=== PATIENT | female | born 1985 | race Caucasian/White ===

== ENCOUNTER 2018-08-18 01:26 | Inpatient (IN) | payer SELFPAY ==
[~2018-08-18] VITALS: Ht 165.1 cm; Wt 67.4 kg
[2018-08-18] VITALS (450 sets, daily range): BP systolic 102–138; BP diastolic 66–88; PULSE 90–109; TEMP 97.3–98.5; O2SAT 80–100
[2018-08-18 01:55] LABS: COLLECTION METHOD CLEAN CATCH
[2018-08-18 02:04] LABS: PH 6 (5-8); URINE APPEARANCE Hazy; URINE BACTERIA None Seen /hpf; URINE BILIRUBIN Negative (NEGATIVE); URINE BLOOD 1+ (NEGATIVE); URINE COLOR Straw; URINE GLUCOSE 3+ (NEGATIVE); URINE KETONE 1+ (NEGATIVE); URINE LEUKOCYTE ESTERASE Trace (NEGATIVE); URINE NITRATE Negative (NEGATIVE); URINE PROTEIN(semi-quant) Negative (NEGATIVE); URINE UROBILINOGEN Negative (NEGATIVE)
[2018-08-18 02:30] LABS: BASO % 0.7 % (0.0-2.0); EOS # 0.1 (0.0-0.7); EOS % 0.8 % (0-4.0); GRAN # 3.7 (1.4-6.5); GRAN % 60.9 % (42.2-75.2); LYMPH # 1.7 (1.2-3.4); LYMPH % 27.6 % (20.0-51.0); MEAN CELL VOLUME 92 fl (80.0-100.0); MEAN CORPUSCULAR HEMOGLOBIN 29 pg (27.0-31.0); MEAN CORPUSCULAR HGB CONC 31 g/dl (33.0-37.0); MEAN PLATELET VOLUME 9.3 fl (7.4-10.4); MONO # 0.6 (0.1-0.6); MONO % 9.7 % (1.7-9.3); PLATELET COUNT 344 K/mm3 (130-400); RED BLOOD COUNT 3.81 M/mm3 (4.10-5.30); REDCELL DISTRIBUTION WIDTH-CV 12.3 % (11.5-14.5)
[2018-08-18 02:40] LABS: ALANINE AMINOTRANSFERASE 29 U/L (9-52); ALBUMIN 3.3 gm/dL (3.5-5.0); ALKALINE PHOSPHATASE 112 U/L (50-136); ANION GAP 10 mmol/L (7-16); AST,SGOT 24 U/L (15-37); BILIRUBIN,TOTAL 0.6 mg/dL (0.0-1.0); BLOOD UREA NITROGEN 30 mg/dL (7-17); CARBON DIOXIDE 24 mmol/L (22-30); CHLORIDE 101 mmol/L (98-107); CREATININE, serum 0.88 mg/dL (0.52-1.25); POTASSIUM 4.2 mmol/L (3.4-5.0); SODIUM 135 mmol/L (137-145); TOTAL PROTEIN 6.1 gm/dL (6.4-8.2)
[2018-08-18 03:05] LABS: GLUCOSE 865 mg/dL (74-106)
[2018-08-18 03:20] LABS: ACETONE,SERUM SMALL
[2018-08-18] MEDS ORDERED: NOVOLIN 70/30 710 ML SQ (04:13)
[2018-08-18 04:29] LABS: TRICYCLIC ANTIDEPRESS URINE NEGATIVE
[2018-08-18 05:55] LABS: CALCIUM 7.8 mg/dL (8.4-10.2); CREATININE, serum 0.77 mg/dL (0.52-1.25); POTASSIUM 4.3 mmol/L (3.4-5.0)
[2018-08-18 07:13] LABS: MAGNESIUM 1.7 mg/dL (1.6-2.3); PHOSPHOROUS 3.3 mg/dL (2.5-4.5)
[2018-08-18 07:54] LABS: CALCIUM 8.1 mg/dL (8.4-10.2); CREATININE, serum 0.73 mg/dL (0.52-1.25); POTASSIUM 4.8 mmol/L (3.4-5.0)
[2018-08-18 08:51] LABS: CALCIUM 8.3 mg/dL (8.4-10.2); CREATININE, serum 0.69 mg/dL (0.52-1.25); POTASSIUM 4.9 mmol/L (3.4-5.0)
[2018-08-18 11:29] LABS: CALCIUM 8.2 mg/dL (8.4-10.2); CREATININE, serum 0.67 mg/dL (0.52-1.25); POTASSIUM 4.1 mmol/L (3.4-5.0)
[2018-08-18 13:55] LABS: COLLECTION METHOD CLEAN CATCH
[2018-08-18 14:02] LABS: MUCOUS Present /lpf; PH 5 (5-8); URINE APPEARANCE Hazy; URINE BACTERIA Occasional /hpf; URINE BILIRUBIN Negative (NEGATIVE); URINE BLOOD 2+ (NEGATIVE); URINE COLOR Straw; URINE GLUCOSE Negative (NEGATIVE); URINE KETONE Negative (NEGATIVE); URINE LEUKOCYTE ESTERASE 1+ (NEGATIVE); URINE NITRATE Negative (NEGATIVE); URINE PROTEIN(semi-quant) Negative (NEGATIVE); URINE UROBILINOGEN Negative (NEGATIVE)
[2018-08-18 14:10] LABS: URINE RBC >50 /hpf
[2018-08-18 15:20] LABS: CALCIUM 8.3 mg/dL (8.4-10.2); CREATININE, serum 0.61 mg/dL (0.52-1.25); POTASSIUM 4.6 mmol/L (3.4-5.0)
[2018-08-19 03:31] VITALS: BP 107/69; PULSE 85; TEMP 98.4
[2018-08-19 07:05] LABS: BASO % 0.6 % (0.0-2.0); EOS # 0.2 (0.0-0.7); EOS % 2.2 % (0-4.0); GRAN # 3.5 (1.4-6.5); GRAN % 49.6 % (42.2-75.2); HEMOGLOBIN 11.5 g/dl (12.5-16.0); LYMPH # 2.9 (1.2-3.4); LYMPH % 41.5 % (20.0-51.0); MEAN CELL VOLUME 88 fl (80.0-100.0); MEAN CORPUSCULAR HEMOGLOBIN 29 pg (27.0-31.0); MEAN CORPUSCULAR HGB CONC 32 g/dl (33.0-37.0); MEAN PLATELET VOLUME 8.9 fl (7.4-10.4); MONO # 0.4 (0.1-0.6); PLATELET COUNT 345 K/mm3 (130-400); RED BLOOD COUNT 4.04 M/mm3 (4.10-5.30); REDCELL DISTRIBUTION WIDTH-CV 12.4 % (11.5-14.5)
[2018-08-19 07:06] LABS: HEMATOCRIT 35.7 % (37.0-47.0)
[2018-08-19 07:20] LABS: CALCIUM 8.7 mg/dL (8.4-10.2); CREATININE, serum 0.81 mg/dL (0.52-1.25); POTASSIUM 3.9 mmol/L (3.4-5.0)
[2018-08-19 07:33] VITALS: BP 136/91; PULSE 99; TEMP 99.1
[2018-08-19 11:00] VITALS: BP 125/80; PULSE 98; TEMP 98.3
[2018-08-19] MEDS ORDERED: HUMULIN 70/30 PE3 ML SQ (11:57)
== END 2018-08-19 13:28 | disposition home or self-care (01) | DRG 639 ==
LOC: COL.ER 01:26 → ICU 03:33 → MEDICAL 19:34
PROVIDERS: Emergency Medicine; Hospitalist; Internal Medicine; Nurse Practitioner Family
DX: E10.65 Type 1 diabetes mellitus with hyperglycemia (principal); Z79.4 Long term (current) use of insulin; E10.42 Type 1 diabetes mellitus with diabetic polyneuropathy; D64.9 Anemia, unspecified; R31.9 Hematuria, unspecified
CPT/HCPCS: 99222-AI; 99239; J1815; J2405; J3010; J3480; J7030

== ENCOUNTER → 2018-12-28 | Outpatient (CLI) | payer SELFPAY ==
[~2018-12-28] MED LIST: HUMULIN 70/30 PE3 ML SQ; NOVOLIN 70/30 710 ML SQ
[2018-12-28 19:01] LABS: ALANINE AMINOTRANSFERASE < 6 U/L (9-52); ALKALINE PHOSPHATASE 135 U/L (50-136); ANION GAP 9 mmol/L (7-16); AST,SGOT 34 U/L (15-37); BILIRUBIN,TOTAL 0.5 mg/dL (0.0-1.0); BLOOD UREA NITROGEN 18 mg/dL (7-17); CALCIUM 9.7 mg/dL (8.4-10.2); CARBON DIOXIDE 28 mmol/L (22-30); CHLORIDE 102 mmol/L (98-107); CHOLESTEROL 282 mg/dL (120-200); CHOLESTEROL RISK RATIO 3.9; CREATININE, serum 0.74 (0.52-1.25); GLUCOSE 231 mg/dL (74-106); HDL CHOLESTEROL 71 mg/dL; LDL CHOLESTEROL 177 mg/dL; POTASSIUM 5.3 mmol/L (3.4-5.0); SODIUM 138 mmol/L (137-145); TRIGLYCERIDE 170 mg/dL
[2018-12-29 15:51] LABS: URINE MICROALBUMIN 18.7 mg/dL (0.0-1.7)
== END ==
LOC: ZCOL.LAB 16:23
PROVIDERS: Family Medicine
DX: E10.9 Type 1 diabetes mellitus without complications (principal)

== ENCOUNTER → 2019-01-08 | Outpatient (CLI) | payer SELFPAY | LOC: ZCOL.LAB 16:36 | DX: E10.9 Type 1 diabetes mellitus without complications (principal); E87.5 Hyperkalemia ==

== ENCOUNTER 2019-01-21 18:38 | Emergency (ER) | payer SELFPAY ==
[~2019-01-21] VITALS: Ht 165.1 cm; Wt 63.6 kg
[2019-01-21 18:48] VITALS: TEMP 96.3
[2019-01-21 19:15] LABS: BASO # 0.1 (0.0-0.2); BASO % 0.7 % (0.0-2.0); EOS # 0.1 (0.0-0.7); EOS % 0.9 % (0-4.0); GRAN # 5.6 (1.4-6.5); GRAN % 72.7 % (42.2-75.2); HEMATOCRIT 38.3 % (37.0-47.0); HEMOGLOBIN 12.5 g/dl (12.5-16.0); LYMPH # 1.5 (1.2-3.4); LYMPH % 20.2 % (20.0-51.0); MEAN CELL VOLUME 86 fl (80.0-100.0); MEAN CORPUSCULAR HEMOGLOBIN 28 pg (27.0-31.0); MEAN CORPUSCULAR HGB CONC 33 g/dl (33.0-37.0); MEAN PLATELET VOLUME 8.9 fl (7.4-10.4); MONO # 0.4 (0.1-0.6); MONO % 5.4 % (1.7-9.3); PLATELET COUNT 412 K/mm3 (130-400); RED BLOOD COUNT 4.47 M/mm3 (4.10-5.30); REDCELL DISTRIBUTION WIDTH-CV 13.2 % (11.5-14.5)
[2019-01-21 19:24] LABS: ALBUMIN 3.5 gm/dL (3.5-5.0); CALCIUM 9.3 mg/dL (8.4-10.2); CREATININE, serum 0.75 (0.52-1.25); POTASSIUM 3.2 mmol/L (3.4-5.0); TOTAL PROTEIN 6.8 gm/dL (6.4-8.2)
[2019-01-21 23:59] VITALS: BP 116/76; PULSE 100
== END 2019-01-22 | disposition home or self-care (01) ==
LOC: COL.ER 18:38
PROVIDERS: Nurse Practitioner
DX: E16.2 Hypoglycemia, unspecified (principal); E11.9 Type 2 diabetes mellitus without complications; Z79.4 Long term (current) use of insulin
CPT/HCPCS: J7030

== ENCOUNTER → 2019-02-12 | Outpatient (CLI) | payer SELFPAY ==
[2019-02-12 17:44] LABS: BILIRUBIN,TOTAL 1.2 mg/dL (0.0-1.0); CALCIUM 9.6 mg/dL (8.4-10.2); CREATININE, serum 1.42 (0.52-1.25); POTASSIUM 4.3 mmol/L (3.4-5.0); TOTAL PROTEIN 7.9 gm/dL (6.4-8.2)
== END ==
LOC: COL.LAB 16:55
PROVIDERS: Family Medicine
DX: R60.9 Edema, unspecified (principal)

== ENCOUNTER 2019-02-14 12:40 | Inpatient (IN) | payer SELFPAY ==
[~2019-02-14] VITALS: Ht 165.1 cm; Wt 63.5 kg
[2019-02-14 13:34] LABS: GASTROCCULT POSITIVE; pH GASTRIC CONTENTS 4
[2019-02-14 13:39] LABS: BASO % 0.4 % (0.0-2.0); EOS # 0.1 (0.0-0.7); EOS % 0.6 % (0-4.0); GRAN # 7.1 (1.4-6.5); GRAN % 78.1 % (42.2-75.2); LYMPH # 1.5 (1.2-3.4); LYMPH % 16.9 % (20.0-51.0); MEAN CELL VOLUME 87 fl (80.0-100.0); MEAN CORPUSCULAR HEMOGLOBIN 28 pg (27.0-31.0); MEAN CORPUSCULAR HGB CONC 33 g/dl (33.0-37.0); MEAN PLATELET VOLUME 9.2 fl (7.4-10.4); MONO # 0.3 (0.1-0.6); MONO % 3.7 % (1.7-9.3); PLATELET COUNT 430 K/mm3 (130-400); RED BLOOD COUNT 4.59 M/mm3 (4.10-5.30); REDCELL DISTRIBUTION WIDTH-CV 12.7 % (11.5-14.5)
[2019-02-14 13:57] LABS: ALBUMIN 3.9 gm/dL (3.5-5.0); BILIRUBIN,TOTAL 0.7 mg/dL (0.0-1.0); C-REACTIVE PROTEIN 1.3 mg/dL (0.0-0.9); CALCIUM 9.6 mg/dL (8.4-10.2); CREATININE, serum 0.85 (0.52-1.25); POTASSIUM 3.8 mmol/L (3.4-5.0); TOTAL PROTEIN 7.6 gm/dL (6.4-8.2)
[2019-02-14 14:54] LABS: MUCOUS Present /lpf; PH 9 (5-8); SQUAMOUS EPITHELIAL 0-2 /hpf; URINE APPEARANCE Cloudy; URINE BACTERIA None Seen /hpf; URINE BILIRUBIN Negative (NEGATIVE); URINE BLOOD 1+ (NEGATIVE); URINE COLOR Yellow; URINE GLUCOSE 2+ (NEGATIVE); URINE KETONE Negative (NEGATIVE); URINE LEUKOCYTE ESTERASE 3+ (NEGATIVE); URINE NITRATE Negative (NEGATIVE); URINE PROTEIN(semi-quant) 3+ (NEGATIVE); URINE RBC 20-50 /hpf; URINE UROBILINOGEN Negative (NEGATIVE)
[2019-02-14 15:10] LABS: COLLECTION METHOD CATHETER
--- NOTE | 2019-02-14 16:20 | NUR ---
Pt arrived to room 315 via cart with ED staff. Pt helped from the cart to the floor bed with the assitance of one. Oriented to room and call light system. Will complete assessment. Pt states she feels nauseaus. Call light within reach, will continue to monitor.
[2019-02-14 17:33] VITALS: BP 151/89; PULSE 103; TEMP 98.1
--- NOTE | 2019-02-14 18:15 | NUR ---
Since arriving to the floor the pt has had constant nausea with one episode of coffee ground emesis around 1809. She has been able to rest intermittently. She is lying in the bed at this time and she denies further needs. Call light within reach.
--- NOTE | 2019-02-14 18:53 | NUR ---
Report given to ESTER Betts.
[2019-02-14 20:39] VITALS: BP 162/96; PULSE 105; TEMP 98.6
--- NOTE | 2019-02-14 20:43 | NUR ---
Resting in bed. x2 episodes of 100ml dark brown emesis. Provided with PRN zofran. Assessment complete. Lungs clear. Heart sounds normal. Bowels active x4. Pulses strong throughout. No edema noted. Denies pain. Denies needs at this time. Call light in reach. Will monitor.
[2019-02-14 22:57] VITALS: BP 142/77; PULSE 108; TEMP 98.1
--- NOTE | 2019-02-14 23:14 | NUR ---
X1 episode of vomiting. Provided with PRN phenergan. Rating ABD pain 10/10. Provided with PRN morphine. Will monitor.
[2019-02-15] VITALS (12 sets, daily range): BP systolic 83–160; BP diastolic 43–97; PULSE 97–119; TEMP 98.3–99.4
--- NOTE | 2019-02-15 03:21 | NUR ---
Patient rating pain 16/10. Provided with PRN morphine. Up to restroom and returned to bed. X1 episode of light green/yellow emesis. Denies other needs. Will monitor.
--- NOTE | 2019-02-15 05:31 | NUR ---
Patient reporting nausea. Provided with PRN phenergan. Will monitor.
--- NOTE | 2019-02-15 05:54 | NUR ---
Patient had x5 episodes of emesis throughout night. x1 episode light green/yellow in color, x4 episodes of dark brown emesis. Required PRN morphine for ABD pain. Recently received PRN phenergan. Resting in bed asleep at this time. Call light in reach.
--- NOTE | 2019-02-15 06:36 | NUR ---
Report given to ESTER Verma
[2019-02-15 06:43] LABS: BASO # 0.1 (0.0-0.2); BASO % 0.5 % (0.0-2.0); EOS % 0.1 % (0-4.0); GRAN % 82.6 % (42.2-75.2); HEMATOCRIT 39.8 % (37.0-47.0); HEMOGLOBIN 12.4 g/dl (12.5-16.0); LYMPH % 8.8 % (20.0-51.0); MEAN CELL VOLUME 90 fl (80.0-100.0); MEAN CORPUSCULAR HEMOGLOBIN 28 pg (27.0-31.0); MEAN CORPUSCULAR HGB CONC 31 g/dl (33.0-37.0); MEAN PLATELET VOLUME 9.4 fl (7.4-10.4); MONO # 0.8 (0.1-0.6); MONO % 7.7 % (1.7-9.3); PLATELET COUNT 402 K/mm3 (130-400); RED BLOOD COUNT 4.42 M/mm3 (4.10-5.30); REDCELL DISTRIBUTION WIDTH-CV 12.9 % (11.5-14.5)
[2019-02-15 07:02] LABS: CALCIUM 8.8 mg/dL (8.4-10.2); CREATININE, serum 1.2 (0.52-1.25); MAGNESIUM 1.6 mg/dL (1.6-2.3)
--- NOTE | 2019-02-15 08:19 | NUR ---
Assessment complete. Pt is drowsy but arrousable to voice. States she has pain in her ABD rated at an "11/10". Pain medication administered on NOV. Breathing is even but labored after using the restroom on room air. RF infusing, remains free of complications, and is CDI. Pt has some green emesis this morning; PRN medication administered on NOV. Pt is resting back in the bed at this time and she denies further needs. Call light within reach, will continue to monitor.
--- NOTE | 2019-02-15 13:55 | NUR ---
Pt left the floor at this time for procedure.
--- NOTE | 2019-02-15 14:59 | NUR ---
Pt returned to room 315 via cart with ESTER Arita.
--- NOTE | 2019-02-15 18:43 | NUR ---
Pt has been resting for most of the day. Had procedure this afternoon aroudn 1400. Has had constant pain in her ABD as well as constant nausea. PRN medications administered on NOV. BP dropped this afternoon to 99/56. CAMERON Lechuga, notified and BP medication held. She is resting quielty in the bed at this time and she denies further needs. Call light within reach. Report given to ESTER Betts.
--- NOTE | 2019-02-15 20:31 | NUR ---
Resting in bed. x2 episodes of dark brown emesis. Assessment complete. Lungs clear. Heart sounds normal. Bowels active x4. Pulses strong throughout. No edema noted. IV right forearm infusing without complications. INT to left wrist flushed without complications. Rating ABD pain 10/10, recently received dose of morphine. Refusing warm pack or other methods of pain relief. Denies other needs at this time. Will monitor.
[2019-02-16] VITALS (7 sets, daily range): BP systolic 135–157; BP diastolic 72–97; PULSE 102–115; TEMP 98.2–100.7
--- NOTE | 2019-02-16 03:32 | NUR ---
Patient reports nausea and 17/10 ABD pain. Provided with PRN phenergan and morphine. Will monitor.
--- NOTE | 2019-02-16 05:45 | NUR ---
Patient had x6 episodes of vomiting throughout shift. Green and dark brown in color. Resting in bed this AM. Denies needs. Call light in reach.
--- NOTE | 2019-02-16 06:55 | NUR ---
Report given to ESTER Reid
--- NOTE | 2019-02-16 07:12 | NUR ---
Reports nausea and 12/10 ABD pain. Provided with PRN morphine and phenergan. Call light in reach.
[2019-02-16 07:19] LABS: BASO % 0.4 % (0.0-2.0); EOS % 0.1 % (0-4.0); GRAN # 6.6 (1.4-6.5); GRAN % 71.6 % (42.2-75.2); HEMATOCRIT 39.5 % (37.0-47.0); HEMOGLOBIN 12.3 g/dl (12.5-16.0); LYMPH # 1.9 (1.2-3.4); LYMPH % 20.5 % (20.0-51.0); MEAN CELL VOLUME 91 fl (80.0-100.0); MEAN CORPUSCULAR HEMOGLOBIN 28 pg (27.0-31.0); MEAN CORPUSCULAR HGB CONC 31 g/dl (33.0-37.0); MEAN PLATELET VOLUME 10.1 fl (7.4-10.4); MONO # 0.6 (0.1-0.6); MONO % 6.7 % (1.7-9.3); PLATELET COUNT 374 K/mm3 (130-400); RED BLOOD COUNT 4.35 M/mm3 (4.10-5.30); REDCELL DISTRIBUTION WIDTH-CV 12.6 % (11.5-14.5)
[2019-02-16 07:26] LABS: CALCIUM 8.9 mg/dL (8.4-10.2); CREATININE, serum 0.84 (0.52-1.25); POTASSIUM 3.8 mmol/L (3.4-5.0)
--- NOTE | 2019-02-16 09:53 | NUR ---
Patient assessment complete. Patient sleeping in bed. Uninterested in cares. States pain is 11/10. Due for next dose of morphine at 1115. Lung sounds diminished, heart rate tachy. No edema noted. patient on room air. Radial pulses strong bilaterally. Patient is nauseous when awakened. Per night nurse, patient is on clear liquids but hasn't kept much down. Patient has not vomited this morning as of yet. BS 174 this morning. Novolog 4 units administered. Will recheck BS. Denies other needs at this time.
--- NOTE | 2019-02-16 14:12 | NUR ---
Patient requesting pain medication. Morphine dose was decreased to 0.5 mg. PRN morphine administered. Patient laying in bed, eyes closed, in dark. Patient will answer questions with minimal response. I informed patient that she needed to get up and walk around, per Dr. Esposito recommendations. Patient had no response. This nurse asked if she could hear me, she responded with "yes". Informed again that next time this nurse was in she would need to get up and walk. No response from patient. Patient has not had anything to eat, denies being hungry. Gave her fresh water. No emesis thus far today. Call light within reach.
--- NOTE | 2019-02-16 17:40 | NUR ---
Patient laying in bed, reports vomiting. Patient had 150 ml of green thin emesis. Patient rating pain 12/10. Patient has only ambulated to bathroom. Patient has not had an appetite throughout the day. Denies other needs at this time. Call light within reach.
--- NOTE | 2019-02-16 19:17 | NUR ---
Patient laying in bed, report given to ESTER Betts.
--- NOTE | 2019-02-16 19:54 | NUR ---
Sitting at bedside crying, rating pain 15/10 in ABD. Reports nausea. x2 episodes of vomiting while in room. Provided with PRN morphine and phenergan. Assessment complete. Lungs clear. Heart sounds normal. Bowels hypoactive x4. Pulses present throughout. No edema noted. Temp elevated 100.7. Refuses tylenol. Refusing to ambulate. IV to right forearm without complications. INT to left wrist without complications. Denies other needs at this time. Will monitor.
--- NOTE | 2019-02-16 21:30 | NUR ---
Patient sister in room discussing and encouraging patient to ambulate and improve condition. Patient laying bed listening to sister. Patient and sister requested update on plan of care. Updated. Sister concerned with "arms being puffy." patient states she does not feel arms have increased in size from normal. All questions answered. Denies needs at this time. Will monitor.
--- NOTE | 2019-02-17 00:07 | NUR ---
Resting in bed. Reports pain and nausea. Provided with PRN morphine and phenergan. Will monitor.
[2019-02-17 04:32] VITALS: BP 155/80; PULSE 108; TEMP 98.2
--- NOTE | 2019-02-17 04:50 | NUR ---
Report 18/ ABD pain and nausea. Patient tearful. Requested PRN morphine and phenergan. Provide to patient. Denies other needs at this time. Call light in reach
--- NOTE | 2019-02-17 06:15 | NUR ---
Patient had several episodes of vomiting and ABD pain throughout night. Provided with PRN morphine and phenergan as ordered. Sister in to see patient last night. Patient refusing to ambulate. Did drink 200 ml of water and was able to not vomit immediately. Resting in bed this Am. Call light in reach.
--- NOTE | 2019-02-17 06:43 | NUR ---
Report given to ESTER Warner
[2019-02-17 07:48] LABS: CREATININE, serum 0.9 (0.52-1.25); POTASSIUM 3.5 mmol/L (3.4-5.0)
[2019-02-17 07:52] VITALS: BP 147/89; PULSE 108; TEMP 99.3
[2019-02-17 11:21] VITALS: BP 120/63; PULSE 103; TEMP 99.6
--- NOTE | 2019-02-17 12:48 | NUR ---
Pt resting in bed and easily arouses with voice and touch. Pt states she remains in pain and is nauseous. Pt able to keep sprite down this am without emesis. Pt given another sprite per request and clear liquid tray ordered for pt as well. Pt given REglan before meal and zestril for BP and heart rate management. Pt has call light in reach and LR running per orders in RF. Pt denies further needs at this time. Pt encourage to increase activity this afternoon. Pt nodded her head up and down.
--- NOTE | 2019-02-17 15:30 | NUR ---
Pt resting now with eyes closed and unlabored respirations. Pt had yellow brown emesis noted after given reglan and zestril as ordered. Pt started crying with pain mostly in epigastric area and pressure per pt. Pt IV remain free of complications. Pt denies SOB or chest pain. Pt has call light in reach.
[2019-02-17 16:57] VITALS: BP 145/81; PULSE 110
--- NOTE | 2019-02-17 18:52 | NUR ---
Pt report given to Katharine NORMNA. Pt request Phenergan and Morphine. Pt small amount of emesis noted and rates pain 10/10. Pt has call light in reach.
--- NOTE | 2019-02-17 19:30 | NUR ---
PT RESTING IN BED, PT CRYING AND REPORTS ABD PAIN /10 ALONG WITH NAUSEA. NO EMESIS SEEN. PRN NAUSEA AND PAIN MEDS GIVEN. PT ON ROOM AIR. PT HEART RATE ELEVATED 100-110. IV FLUSHES WELL, NO REDNESS, NO SWELLING X2. NO NEEDS AT THIS TIME, CALL LIGHT INREACH
[2019-02-17 19:34] VITALS: BP 149/90; PULSE 105; TEMP 97.9
[2019-02-17 23:43] VITALS: BP 141/82; PULSE 102; TEMP 100
[2019-02-18 03:36] VITALS: BP 153/91; PULSE 102; TEMP 99.7
--- NOTE | 2019-02-18 05:08 | NUR ---
pt reported nausea and vomiting during night, prn phenergan and morphine given. after administration pt would be able to sleep. pt npo since midnight. IV to right forarm- iv fluids running, no redness, no swelling. left wrist no redness, no swelling. SCD worn during night. no needs at this time. call light inreach
--- NOTE | 2019-02-18 07:13 | NUR ---
report given to ESTER Reid. pt reports no needs at this time
--- NOTE | 2019-02-18 07:25 | NUR ---
Report recevied from ESTER Alcantar. Patient down for gastric emptying study at this time.
--- NOTE | 2019-02-18 08:23 | NUR ---
Patient down for GES. Geraldine from [facility] called, patient nauseous and in pain. Unable to give pain meds due to study. Stated phenergan would be ok, asked if this nurse could come down to administer. This nurse went down. patient laying in bed, curled up, not talking. Administered phenergan.
--- NOTE | 2019-02-18 12:30 | NUR ---
Patient back from GES study.
[2019-02-18 12:54] VITALS: BP 149/89; PULSE 69; TEMP 97.8
--- NOTE | 2019-02-18 13:00 | NUR ---
Patient back from [facility]. Laying in bed, rocking side to side. Assessment not complete this morning prior to leaving for study. Assessment completed at this time. Patient lung sounds are CTA. Bowel sounds present. Heart rate is tachy, normal rhythm and sound. Pulses palpable. Patient is puffy, generalized edema. Patient denies dizziness or SOB. C/O pain "all over". Financial in to visit with pt about medicaid. Patient was irritated with answering questions, "I just want to be left alone". Rates pain 13/10. Denies other needs at this time.
--- NOTE | 2019-02-18 14:41 | NUR ---
SW attended clinical rounds to disucuss discharge planning. Patient reported to doctor that she has no energy. Patient reports she does have depression but does not want to be seen by psych. SW then met with patient. Patient lives independently at home. Patient's PCP is Dr Jacobsen and she obtains prescriptions from [facility]. Patient doesn't use any DME or home health services. SW inquired if patient would like to be seen by psych and patient confirmed that she does not. SW reported that if patient changes her mind, psych can see her while she is admitted and if she would like to be scheduled with someone at [facility] as an outpatient, SW can scheudle that appoitment. No additional needs at this time.
[2019-02-18 16:19] VITALS: BP 165/97; PULSE 101; TEMP 98.2
--- NOTE | 2019-02-18 16:55 | NUR ---
Patient laying in bed, easily arousable. Patient uninterested in participating in cares, wants to be "left alone". patient diet advanced to full liquids, patient not interested in eating. Requested sprite. No other needs at this time.
--- NOTE | 2019-02-18 19:10 | NUR ---
Report given to ESTER Alcantar. Patient has slept in bed all afternoon, uncooperative with cares. Refuses to get up with physical therapy. Denies depression. Denies other needs.
[2019-02-18 19:40] VITALS: BP 135/71; PULSE 92; TEMP 98.3
--- NOTE | 2019-02-18 21:21 | NUR ---
PT RESTING IN BED ALERT AND ORIENTED. REPORTED NAUSEA- PRN MEDS GIVEN. 07/11 PAIN- PT REQUESTS PAIN MEDS AFTER PHENERGAN IS GIVEN. PT HAS GENERALIZED EDEMA BUT STATED DOES NOT FEEL SWOLLEN OR EDEMATOUS. NO NEEDS AT THIS TIME. CALL LIGHT IN REACH.
[2019-02-19] VITALS: BP 112/67; PULSE 86; TEMP 98.5
[2019-02-19 03:27] VITALS: BP 143/89; PULSE 105; TEMP 97.5
--- NOTE | 2019-02-19 05:36 | NUR ---
pt had an uneventful night. reported nausea, no vomitting at beginning of the night- phenergan given and reported relief. pain at the beginning of the night- prn norco given and reports relief. pt slept throughout the rest of the night. pt drank water and juice during night. insulin given as ordered. no needs at this time call light in reach
--- NOTE | 2019-02-19 06:13 | NUR ---
removed pt left wrist IV d/t request being painful. this nurse noted redness. catheter tip intact. no needs at this time call light in reach
[2019-02-19 06:51] LABS: BASO % 0.5 % (0.0-2.0); EOS # 0.1 (0.0-0.7); EOS % 1.5 % (0-4.0); GRAN # 3.8 (1.4-6.5); GRAN % 43.6 % (42.2-75.2); LYMPH # 4.1 (1.2-3.4); LYMPH % 46.8 % (20.0-51.0); MEAN CELL VOLUME 88 fl (80.0-100.0); MEAN CORPUSCULAR HEMOGLOBIN 28 pg (27.0-31.0); MEAN CORPUSCULAR HGB CONC 32 g/dl (33.0-37.0); MEAN PLATELET VOLUME 9.4 fl (7.4-10.4); MONO # 0.7 (0.1-0.6); MONO % 7.4 % (1.7-9.3); PLATELET COUNT 333 K/mm3 (130-400); RED BLOOD COUNT 3.89 M/mm3 (4.10-5.30); REDCELL DISTRIBUTION WIDTH-CV 12.2 % (11.5-14.5)
[2019-02-19 06:52] LABS: HEMATOCRIT 34.3 % (37.0-47.0)
--- NOTE | 2019-02-19 06:52 | NUR ---
report given to ESTER Bull. pt reports no needs
--- NOTE | 2019-02-19 07:00 | NUR ---
Report received from ESTER Alcantar. Pt in bed resting, awake and alert, ordering breakfast, will continue to monitor.
[2019-02-19 07:07] LABS: ALBUMIN 2.6 gm/dL (3.5-5.0); BILIRUBIN,TOTAL 0.7 mg/dL (0.0-1.0); CREATININE, serum 0.69 (0.52-1.25); TOTAL PROTEIN 5.5 gm/dL (6.4-8.2)
[2019-02-19 07:28] LABS: POTASSIUM 2.9 mmol/L (3.4-5.0)
[2019-02-19 07:47] VITALS: BP 155/90; PULSE 91; TEMP 99
--- NOTE | 2019-02-19 08:30 | NUR ---
Assessment charted. Pt denies nausea, vomiting, pain, states she feels she is "starving" and upset she canno have crackers with the full liquid diet. Breakfast arrived, ready to eat. discussed potassium levels and replacement plan, pt tolerable to PO and requesting grape juice, denies needs, will continue to monitor.
[2019-02-19 11:24] VITALS: BP 118/75; PULSE 96; TEMP 98.5
--- NOTE | 2019-02-19 12:18 | NUR ---
Pt states she has had diarhhea this neelima since starting the PO potassium replacement and is now refusing potassium, notified CAMERON Lechuga with hospitalist team.
[2019-02-19] MEDS ORDERED: REGLAN 5MG T5 MG/TAB PO (13:03)
[2019-02-19] MEDS ORDERED: CEFTIN 250250 MG/TAB PO (13:03)
[2019-02-19] MEDS ORDERED: PRINIVIL20 MG PO (13:03)
[2019-02-19] MEDS ORDERED: PROTONIX 40MG T40 MG PO (13:03)
[2019-02-19] MEDS ORDERED: MAG-OX 400400 MG/TAB PO (13:58)
--- NOTE | 2019-02-19 14:48 | NUR ---
INT was hurting in RF. Called Beth and Alexandrea, updated and they were okay with starting pt on magnesium oxide and sent script to pharmacy. INT dc'd, tip intact. Reviewed discharge packet, asnwered all questions. Pt left with all belongings, escorted out with medical staff. Family to drive home, Criteria met.
== END 2019-02-19 14:40 | disposition home or self-care (01) | DRG 73 ==
LOC: COL.ER 12:40 → MEDICAL 15:32
PROVIDERS: Family Medicine; Physician Assistant; ADMIT Internal Medicine
PROC: 0DB68ZX Excision of Stomach, Via Natural or Artificial Opening Endoscopic, Diagnostic (ICD-10-PCS; principal; 2019-02-16)
DX: E10.43 Type 1 diabetes mellitus with diabetic autonomic (poly)neuropathy (principal); K29.61 Other gastritis with bleeding; N39.0 Urinary tract infection, site not specified; N17.9 Acute kidney failure, unspecified; E87.0 Hyperosmolality and hypernatremia; K31.84 Gastroparesis; I10 Essential (primary) hypertension; R00.0 Tachycardia, unspecified; K21.0 Gastro-esophageal reflux disease with esophagitis; B96.20 Unspecified Escherichia coli [E. coli] as the cause of diseases classified elsewhere; E86.0 Dehydration; E87.6 Hypokalemia; R50.9 Fever, unspecified
CPT/HCPCS: 99223-AI; 99232-AI; 99239; A4216; A9541; C9113; G0378; J0696; J1644; J1815; J2250; J2270; J2405; J2550; J3010; J3475; J7030; J7040; J7042; J7120; Q9967

== ENCOUNTER 2019-03-05 09:00 | Emergency (ER) | payer SELFPAY ==
[~2019-03-05] VITALS: Ht 165.1 cm; Wt 65.9 kg
[~2019-03-05 09:00] MED LIST changes: +CEFTIN 250250 MG/TAB PO; +MAG-OX 400400 MG/TAB PO; +PRINIVIL20 MG PO; +PROTONIX 40MG T40 MG PO; +REGLAN 5MG T5 MG/TAB PO
[2019-03-05 09:33] LABS: BASO # 0.1 (0.0-0.2); BASO % 0.7 % (0.0-2.0); EOS # 0.1 (0.0-0.7); EOS % 1.3 % (0-4.0); GRAN # 5.4 (1.4-6.5); GRAN % 65.8 % (42.2-75.2); HEMATOCRIT 37.9 % (37.0-47.0); HEMOGLOBIN 12.1 g/dl (12.5-16.0); LYMPH # 2.1 (1.2-3.4); LYMPH % 25.7 % (20.0-51.0); MEAN CELL VOLUME 89 fl (80.0-100.0); MEAN CORPUSCULAR HEMOGLOBIN 28 pg (27.0-31.0); MEAN CORPUSCULAR HGB CONC 32 g/dl (33.0-37.0); MONO # 0.5 (0.1-0.6); MONO % 6.3 % (1.7-9.3); PLATELET COUNT 382 K/mm3 (130-400); RED BLOOD COUNT 4.28 M/mm3 (4.10-5.30); REDCELL DISTRIBUTION WIDTH-CV 12.5 % (11.5-14.5)
[2019-03-05 09:37] LABS: INR 0.8 (0.8-3.0); PROTHROMBIN TIME 9.4 SECONDS (9.7-12.8)
[2019-03-05 09:46] LABS: ALANINE AMINOTRANSFERASE < 6 U/L (9-52); ALBUMIN 3.3 gm/dL (3.5-5.0); ALKALINE PHOSPHATASE 91 U/L (50-136); ANION GAP 11 mmol/L (7-16); AST,SGOT 16 U/L (15-37); BILIRUBIN,TOTAL 0.3 mg/dL (0.0-1.0); BLOOD UREA NITROGEN 26 mg/dL (7-17); CARBON DIOXIDE 27 mmol/L (22-30); CHLORIDE 105 mmol/L (98-107); CREATININE, serum 0.89 (0.52-1.25); GLUCOSE 165 mg/dL (74-106); POTASSIUM 3.5 mmol/L (3.4-5.0); SODIUM 143 mmol/L (137-145); TOTAL PROTEIN 6.8 gm/dL (6.4-8.2)
[2019-03-05 09:50] LABS: ACETAMINOPHEN < 10 ug/mL (10-30); ALCOHOL(ethanol),MEDICAL < 10 mg/dL; SALICYLATE < 1.0 mg/dL
[2019-03-05 09:56] LABS: MAGNESIUM 1.7 mg/dL (1.6-2.3)
[2019-03-05 10:10] LABS: TROPONIN-I < 0.012 ng/mL (0.000-0.035)
--- NOTE | 2019-03-05 11:15 | NUR ---
SW was called by ED Physician because patient's sister, Michelle, voiced concerns about possibly needing a caregiver for patient. Michelle requested to meet with SW without patient because patient would be become upset with this conversation. CANDY met with Michelle and she explained her concerns and gave a brief history. Patient was recently in the hospital at the end of January. Michelle is concerned that patient is "giving up" in regards to her health. She reports patient has recently quit/lost her job and she now just "sits around the apartment all day." Michelle is concerned with patient being at home by herself all day while she is at work. Originally Michelle was just interested in a possible "caregiver/ethylene oxide panelboard operator" or someone who would be able to check on her once or twice a day. CANDY reported that, unfortunately, there aren't many resources for this type of need for people of a young age. Given patient's history during her last hospitalization, CANDY inquired if patient has ever been seen by someone for mental health. Michelle reports that she has not and during her last hospitalization, patient refused to be seen by psych. CANDY provided mental health resources. CANDY also inquired how patient pays for her medications, specifically her insulin, if she does not have insurance. Michelle reported that patient was working until recently and she has also help pay for medications. CANDY inquired if she followed up with her PCP, Dr. Jacobsen, after being hospitalized. Michelle reported that she did not go to her scheduled follow up appointment and she no longer "wants to see that doctor." CANDY gave resources for clinics that can provide primary care and also financial resources for medications. CANDY also contacted Olga from financial counselor to help assist with a disability application. Olga suggested SW provide her number to patient and sister and request they contact her to make an appointment. CANDY provided phone number.
[2019-03-05 12:34] LABS: COLLECTION METHOD CLEAN CATCH
[2019-03-05 12:42] LABS: BUDDING YEAST Present /hpf; MUCOUS Present /lpf; PH 6 (5-8); URINE APPEARANCE Cloudy; URINE BACTERIA Rare /hpf; URINE BILIRUBIN Negative (NEGATIVE); URINE BLOOD 2+ (NEGATIVE); URINE COLOR Yellow; URINE GLUCOSE 3+ (NEGATIVE); URINE KETONE Negative (NEGATIVE); URINE LEUKOCYTE ESTERASE 3+ (NEGATIVE); URINE NITRATE Negative (NEGATIVE); URINE PROTEIN(semi-quant) 2+ (NEGATIVE); URINE RBC >50 /hpf; URINE UROBILINOGEN Negative (NEGATIVE)
[2019-03-05 12:48] LABS: TRICYCLIC ANTIDEPRESS URINE NEGATIVE
[2019-03-05] MEDS ORDERED: OMNICEF 300MG300 MG PO (12:54)
[2019-03-05] MEDS ORDERED: ZITHROMAX Z PA250 MG PO (13:12)
[2019-03-05 13:27] VITALS: BP 132/94; PULSE 110; TEMP 97.6
== END 2019-03-05 13:30 | disposition home or self-care (01) ==
LOC: COL.ER 09:00
PROVIDERS: Emergency Medicine
DX: E10.649 Type 1 diabetes mellitus with hypoglycemia without coma (principal); F12.90 Cannabis use, unspecified, uncomplicated
CPT/HCPCS: A4216; J0696; J1610; J2405; J3475; J7030

== ENCOUNTER 2019-09-08 13:08 | Emergency (ER) | payer SELFPAY ==
[~2019-09-08] VITALS: Ht 165.1 cm; Wt 63.6 kg
[~2019-09-08 13:08] MED LIST changes: +OMNICEF 300MG300 MG PO; +ZITHROMAX Z PA250 MG PO
[2019-09-08 13:17] VITALS: BP 189/97; TEMP 98.4
[2019-09-08] MEDS ORDERED: NORCO 325 MG-7.1 TAB PO (14:37)
[2019-09-08] MEDS ORDERED: CRUTCHES MC (14:40)
[2019-09-08 16:48] VITALS: PULSE 93
[2019-09-09] MEDS ORDERED: HUMULIN 70/3100 U/M1 SQ (13:26)
== END 2019-09-08 16:48 | disposition home or self-care (01) ==
LOC: COL.ER 13:08
DX: S82.002A Unspecified fracture of left patella, initial encounter for closed fracture (principal); E10.65 Type 1 diabetes mellitus with hyperglycemia; W01.0XXA Fall on same level from slipping, tripping and stumbling without subsequent striking against object, initial encounter
CPT/HCPCS: J1815; J3010; J7030; L1846

== ENCOUNTER 2019-09-09 10:51 | Inpatient (IN) | payer SELFPAY ==
[~2019-09-09] VITALS: Ht 165.1 cm; Wt 65.5 kg
[~2019-09-09 10:51] MED LIST changes: +CRUTCHES MC; +NORCO 325 MG-7.1 TAB PO
[2019-09-09 11:47] VITALS: BP 113/67; PULSE 89; TEMP 97.8
--- NOTE | 2019-09-09 12:10 | NUR ---
admission history completed by ESTER Lechuga
--- NOTE | 2019-09-09 12:43 | NUR ---
radiology here and patient into WC and to radiology for CT scan of Left knee, c/o some pain is whimpering
[2019-09-09] MEDS ORDERED: HUMULIN 70/3100 U/M1 SQ (13:26)
--- NOTE | 2019-09-09 13:35 | NUR ---
crying and c/o terrific pain to left knee, medicated with percocet 7.5mg 1 tab, will let rest and complete physical assessment after pain is better controlled
--- NOTE | 2019-09-09 14:30 | NUR ---
appears to be sleeping, entered room and patient is in bed with lights off, eyes closed and resp quiet and easy and did not arouse when nurse entered room
--- NOTE | 2019-09-09 15:40 | NUR ---
lab in to draw blood and Dr Campos in to see patient, resting quietly, INT started and she tolerated well, light lunch has been ordered
[2019-09-09 15:51] LABS: BASO # 0.1 (0.0-0.2); BASO % 0.6 % (0.0-2.0); EOS # 0.2 (0.0-0.7); EOS % 1.9 % (0-4.0); GRAN # 6.2 (1.4-6.5); HEMOGLOBIN 10.6 g/dl (12.5-16.0); LYMPH # 2.9 (1.2-3.4); LYMPH % 29.4 % (20.0-51.0); MEAN CELL VOLUME 90 fl (80.0-100.0); MEAN CORPUSCULAR HEMOGLOBIN 29 pg (27.0-31.0); MEAN CORPUSCULAR HGB CONC 32 g/dl (33.0-37.0); MEAN PLATELET VOLUME 9.3 fl (7.4-10.4); MONO # 0.6 (0.1-0.6); MONO % 5.7 % (1.7-9.3); PLATELET COUNT 352 K/mm3 (130-400); RED BLOOD COUNT 3.67 M/mm3 (4.10-5.30); REDCELL DISTRIBUTION WIDTH-CV 12.3 % (11.5-14.5)
[2019-09-09 15:52] LABS: HEMATOCRIT 33.1 % (37.0-47.0); INR 0.8 (0.8-3.0); PROTHROMBIN TIME 9.5 SECONDS (9.7-12.8)
--- NOTE | 2019-09-09 16:00 | NUR ---
had light lunch and tolerated well
[2019-09-09 16:04] LABS: BILIRUBIN,TOTAL 0.6 mg/dL (0.0-1.0); CALCIUM 8.3 mg/dL (8.4-10.2); CREATININE, serum 1.33 (0.52-1.25); POTASSIUM 4.6 mmol/L (3.4-5.0); TOTAL PROTEIN 6.2 gm/dL (6.4-8.2)
[2019-09-09 16:11] LABS: PRE ALBUMIN 18.5 mg/dL (17.6-36.0)
[2019-09-09 16:26] LABS: COLLECTION METHOD CLEAN CATCH
[2019-09-09 16:30] VITALS: BP 114/65; PULSE 99; TEMP 97.5
[2019-09-09 16:38] LABS: PH 5 (5-8); URINE APPEARANCE Cloudy; URINE BACTERIA None Seen /hpf; URINE BILIRUBIN Negative (NEGATIVE); URINE BLOOD Negative (NEGATIVE); URINE COLOR Yellow; URINE GLUCOSE 3+ (NEGATIVE); URINE KETONE Trace (NEGATIVE); URINE LEUKOCYTE ESTERASE 3+ (NEGATIVE); URINE NITRATE Negative (NEGATIVE); URINE PROTEIN(semi-quant) 3+ (NEGATIVE); URINE RBC >50 /hpf; URINE UROBILINOGEN Negative (NEGATIVE)
--- NOTE | 2019-09-09 17:25 | NUR ---
blood sugar [address] terrazas notified
--- NOTE | 2019-09-09 17:54 | NUR ---
appears to be sleeping, awakened and informed supper was at bedside, verbalizes understanding
--- NOTE | 2019-09-09 18:48 | NUR ---
appears to be dozing, awakened and bedside shift report given to ESTER Howard reminded again about having supper
[2019-09-09 20:51] VITALS: BP 101/61; PULSE 88; TEMP 98.1
--- NOTE | 2019-09-09 21:44 | NUR ---
Assessment completed. A/o with VSS. Does c/o pain this evening, 06/11. PRN percocet given. Has brace on left knee, and requested to take ice pack off. NS running in right hand at 125. No other concerns at this time, call light within reach. will continue to monitor
[2019-09-09 23:24] VITALS: BP 98/54; PULSE 78; TEMP 98
--- NOTE | 2019-09-10 03:55 | NUR ---
Pt voided 30cc of milky white thick urine with a foul odor. Patient denies pain or issues when she voided. Will bladder scan patient to see any residue left.
[2019-09-10 03:57] VITALS: BP 141/90; PULSE 93; TEMP 98
--- NOTE | 2019-09-10 04:11 | NUR ---
Bladder scanned pt, read 350ml. Urine was sent for culture yesterday. Still pending.
--- NOTE | 2019-09-10 04:12 | NUR ---
Pt refused ice pack to left knee
[2019-09-10 07:31] VITALS: BP 114/66; PULSE 96; TEMP 99.5
--- NOTE | 2019-09-10 08:09 | NUR ---
VM left for Kelle with ortho for consult.
[2019-09-10 08:25] LABS: BASO # 0.1 (0.0-0.2); BASO % 0.6 % (0.0-2.0); EOS # 0.2 (0.0-0.7); EOS % 2.2 % (0-4.0); GRAN % 59.9 % (42.2-75.2); HEMOGLOBIN 10.2 g/dl (12.5-16.0); LYMPH # 3.1 (1.2-3.4); LYMPH % 31.4 % (20.0-51.0); MEAN CELL VOLUME 91 fl (80.0-100.0); MEAN CORPUSCULAR HEMOGLOBIN 29 pg (27.0-31.0); MEAN CORPUSCULAR HGB CONC 32 g/dl (33.0-37.0); MEAN PLATELET VOLUME 9.3 fl (7.4-10.4); MONO # 0.6 (0.1-0.6); MONO % 5.6 % (1.7-9.3); PLATELET COUNT 351 K/mm3 (130-400); RED BLOOD COUNT 3.55 M/mm3 (4.10-5.30); REDCELL DISTRIBUTION WIDTH-CV 12.2 % (11.5-14.5)
[2019-09-10 08:26] LABS: HEMATOCRIT 32.4 % (37.0-47.0)
[2019-09-10 08:42] LABS: CALCIUM 7.8 mg/dL (8.4-10.2); CREATININE, serum 1.23 (0.52-1.25); POTASSIUM 4.5 mmol/L (3.4-5.0)
--- NOTE | 2019-09-10 09:16 | NUR ---
Initial visit; Patient experiencing a lot of pain, Marketing Analytics Lead offered God's blessings when the nurse came and will look in on Lareina another time.
--- NOTE | 2019-09-10 10:00 | NUR ---
Patient alert and oriented, answers questions appropriately. See assessment. LLE with brace in place, neuros intact, pulses palpable. No swelling or bruising noted to left knee. NWB to LLE. Patient continously cries, yet has no specific c/o, when not crying c/o pain to LLE 10/10. Does not make eye contact with conversation. Request nausea and pain medication continously. No other c/o at this time.
[2019-09-10 12:00] VITALS: BP 151/90; PULSE 100; TEMP 98.2
--- NOTE | 2019-09-10 13:24 | NUR ---
SW met with the patient to discuss discharge plan. The patient lives in [place] with her sister, Michelle Rangel (ph#[phone]), and her cousin. She reports independence with ADLs and does not have any DME. The patient does not have a PCP and she states that there is a hospital by her house that she would just prefer to go there, if needed. She receives her medications at [facility] and she reports no difficulties obtaining her meds. The patient is self pay. Financial Counseling has been consulted. The patient plans to return home with her sister and cousin upon discharge. No additional needs at this time, but SW to continue to follow.
--- NOTE | 2019-09-10 14:00 | NUR ---
Patient notified of order for bryant catheter, refused.
[2019-09-10 16:00] VITALS: BP 110/68; PULSE 89; TEMP 98.4
[2019-09-10 20:00] VITALS: BP 133/79; PULSE 99; TEMP 98.3
--- NOTE | 2019-09-10 21:57 | NUR ---
Pt laying in bed, c/o pain to left knee. Will not get out of bed when encouraged to. Alert and oriented with VSS. New IV start to right forearm by house. Offered PO pain meds but refused and stated she wanted IV pain medicine.
--- NOTE | 2019-09-10 22:22 | NUR ---
Pt refused catheter, stated "she has had one before and they are itchy and uncomfortable."
[2019-09-11] VITALS (8 sets, daily range): BP systolic 114–179; BP diastolic 59–103; PULSE 88–99; TEMP 97.7–99.1
--- NOTE | 2019-09-11 04:06 | NUR ---
Pt has had 3 epsidoes of diarrhea this shift. Small, loose, brown stools. PRN immodium given twice. Pt now resting in bed
[2019-09-11 06:07] LABS: BASO % 0.1 % (0.0-2.0); EOS # 0.2 (0.0-0.7); EOS % 2.8 % (0-4.0); GRAN # 3.4 (1.4-6.5); GRAN % 46.3 % (42.2-75.2); LYMPH % 41.7 % (20.0-51.0); MEAN CELL VOLUME 92 fl (80.0-100.0); MEAN CORPUSCULAR HGB CONC 32 g/dl (33.0-37.0); MEAN PLATELET VOLUME 8.9 fl (7.4-10.4); MONO # 0.6 (0.1-0.6); MONO % 8.8 % (1.7-9.3); PLATELET COUNT 345 K/mm3 (130-400); RED BLOOD COUNT 3.13 M/mm3 (4.10-5.30); REDCELL DISTRIBUTION WIDTH-CV 12.4 % (11.5-14.5)
[2019-09-11 06:08] LABS: HEMATOCRIT 28.7 % (37.0-47.0); HEMOGLOBIN 9.1 g/dl (12.5-16.0); MEAN CORPUSCULAR HEMOGLOBIN 29 pg (27.0-31.0)
[2019-09-11 06:14] LABS: CREATININE, serum 1.03 (0.52-1.25); POTASSIUM 4.2 mmol/L (3.4-5.0)
--- NOTE | 2019-09-11 07:30 | NUR ---
PATIENT IS ORIENTED BUT DROWSY. PATIENT SOUNDS ASLEEP DURING BEDSIDE SHIFT REPORT.
--- NOTE | 2019-09-11 08:00 | NUR ---
PATIENT IS ORIENTED BUT STILL DROWSY. FIREWORKS DISPLAY SPECIALIST REPORTS GIVING IV MORPHINE BEFORE SHIFT CHANGE. PATIENT C/O PAIN IN HER LLE. PATIENT FELL AT [facility] AND FX HER LEFT PATELLA, SURGERY PENDING TOMORROW. LLE ELEVATED WITH PILLOWS. BRACE TO LLE. NWB TO LLE. PT WORKING WITH PATIENT, ONE ASSIST. PATIENT ALSO C/O STOMACH UPSET AND DIARRHEA. PATIENT HAS BEEN GIVEN IMMODIUM & PEPTO ON FIREWORKS DISPLAY SPECIALIST. NO C/O N/V AT THIS TIME. IV FLUIDS INFUSING INTO RIGHT FORARM VIA PUMP. HEAD TO TOE ASSESSMENT COMPLETE. NO OTHER NEEDS. PATIENT SLEEPING. CALL LIGHT IN REACH.
--- NOTE | 2019-09-11 20:00 | NUR ---
Report received. Assumed care for shift superintendent caustic cresylate. Assessment complete. A&Ox3. States she hasnt had any more episoded of loose stools. Denies pain/nausea/shortness of breath. Brace on to left lower extremity-elevated on pillows. Refusing ice pack stating she cant feel it through brace. Right FA IV with NS@125mls/hr. No redness/swelling noted. Plan of care discussed for meds/activity/NPO after midnight. Denies questions or concerns. Call light in reach/bed in low position/wheels locked. Will monitor.
--- NOTE | 2019-09-11 21:30 | NUR ---
C/O nausea and pain. Rating pain 7/10 to left knee described as constant ache/throbbing. States she is nauseated and dry heaving. Zofran given IV per dr order as well as Morphine 1mg. Will monitor.
[2019-09-12] VITALS (13 sets, daily range): BP systolic 95–160; BP diastolic 55–95; PULSE 91–115; TEMP 98–98.9
--- NOTE | 2019-09-12 00:30 | NUR ---
Report from PCT of elevated blood pressure of 160/95. Taken by this nurse manually-148/88. Is c/o pain-Morphine given per dr order. Will monitor effectiveness.
--- NOTE | 2019-09-12 00:30 | NUR ---
C/O pain to left knee-rates pain 05/11 described as constant ache with intermittent stabbing. Refusing ice pack. Morphine 1mg given per dr order due to NPO status.
--- NOTE | 2019-09-12 04:51 | NUR ---
Has rested off and on this shift. Has C/O pain to left knee-received morphine IV with good results. Did c/o nausea x1 this shift. Refused ice packs. Left lower extreity remained elevated on pillows with immobolizer on entire shift. Has not had any loose/liquid stools this shift. Constent signed and on chart for surgical procedure. Encouraged to call for questions/concerns. Verbalizes understanding. Call light in reach. Bed in low/wheels locked. Will monitor.
--- NOTE | 2019-09-12 06:45 | NUR ---
PATIENT GOING DOWN TO OR VIA BED. CONSENT ON CHART.
--- NOTE | 2019-09-12 11:05 | NUR ---
PATIENT BACK IN ROOM POST OP. PATIENT IS CRYING IN PAIN. PACU GAVE IV PAIN MEDS HOWEVER PATIENT CONTINUES TO CRY. PATIENT RESP WERE DECREASED IN PACU, REPORTED SO NO ADDITIONAL IV PAIN MEDS GIVEN AT THAT TIME. PATIENT NOW BACK TO FLOOR AND MORE AWAKE AND CRYING. GAVE PRN IV MORPHINE. PATIENT CONTINUES TO CRY, ORTHO CALLED.
--- NOTE | 2019-09-12 11:10 | NUR ---
ORIENTED BUT DROWSY. WHEN PATIENT WAKES SHE CRIES OUT IN PAIN. LLE ELEVATED ON PILLOWS, IROM BRACE AND ICE PACK INPLACE. POSITIVE PEDAL PULSES TO BLE. AQUACEL TO LEFT KNEE IS CD&I. NO C/O N/V. IV FLUIDS INFUSING INTO RIGHT FORARM IV. BS IN PACU WAS 293, WAS GIVEN 6 UNITS IN PACU. HOSPITALIST TEAM WILL BE ROUNDING SOON. SISTER NOW AT BEDSIDE. PATIENT NOW CRYING AGAIN. GAVE NOW DOSE OF IV FENTANYL PER ORDERS.
[2019-09-12 11:34] LABS: BASO % 0.2 % (0.0-2.0); EOS # 0.2 (0.0-0.7); EOS % 1.4 % (0-4.0); GRAN # 8.5 (1.4-6.5); LYMPH # 1.7 (1.2-3.4); LYMPH % 15.7 % (20.0-51.0); MEAN CELL VOLUME 92 fl (80.0-100.0); MEAN CORPUSCULAR HEMOGLOBIN 29 pg (27.0-31.0); MEAN CORPUSCULAR HGB CONC 31 g/dl (33.0-37.0); MEAN PLATELET VOLUME 9.3 fl (7.4-10.4); MONO # 0.4 (0.1-0.6); MONO % 3.2 % (1.7-9.3); PLATELET COUNT 304 K/mm3 (130-400); RED BLOOD COUNT 3.49 M/mm3 (4.10-5.30); REDCELL DISTRIBUTION WIDTH-CV 12.3 % (11.5-14.5)
[2019-09-12 11:41] LABS: CREATININE, serum 1.24 (0.52-1.25); POTASSIUM 4.9 mmol/L (3.4-5.0)
--- NOTE | 2019-09-12 11:45 | NUR ---
HOSPITALIST TEAM AT BEDSIDE. PATIENT WAS SLEEPING FOR SHORT PERIOD AFTER MORPHINE & FENTANYL. GAVE PRN PERCOCET WITH SIPS.
--- NOTE | 2019-09-13 02:31 | NUR ---
Patient noted to call out and request for pain medication frequently. PRN pain medication given as needed. Between pain medication doses, patient noted to be asleep, but when she is awake states pain is a 9/10 and is seen crying. IROM to left knee. Tolerates ice to knee. Patient resting at this time. Will continue to monitor.
[2019-09-13 06:14] LABS: BASO % 0.3 % (0.0-2.0); EOS # 0.1 (0.0-0.7); EOS % 0.6 % (0-4.0); GRAN # 8.5 (1.4-6.5); GRAN % 71.1 % (42.2-75.2); HEMATOCRIT 34.1 % (37.0-47.0); HEMOGLOBIN 10.6 g/dl (12.5-16.0); LYMPH # 2.2 (1.2-3.4); LYMPH % 18.4 % (20.0-51.0); MEAN CELL VOLUME 94 fl (80.0-100.0); MEAN CORPUSCULAR HEMOGLOBIN 29 pg (27.0-31.0); MEAN CORPUSCULAR HGB CONC 31 g/dl (33.0-37.0); MEAN PLATELET VOLUME 9.3 fl (7.4-10.4); MONO % 8.8 % (1.7-9.3); PLATELET COUNT 371 K/mm3 (130-400); RED BLOOD COUNT 3.64 M/mm3 (4.10-5.30); REDCELL DISTRIBUTION WIDTH-CV 12.4 % (11.5-14.5)
--- NOTE | 2019-09-13 06:22 | NUR ---
Blood glucose level noted to be 431. Dr. Campos notified and ordered to give 15 units of Novolog now instead of the sliding scale. EMAR updated and insulin given. Will continue to monitor patient.
[2019-09-13 06:23] LABS: CREATININE, serum 1.77 (0.52-1.25)
[2019-09-13 06:27] LABS: POTASSIUM 6.5 mmol/L (3.4-5.0)
--- NOTE | 2019-09-13 06:35 | NUR ---
Critical lab value called from lab K: 6.5. Dr. Campos notified and ordered to get an EKG and start patient on telemetry and he will input more orders later this morning. This nurse updated him that the insulin has been given for previous high blood glucose level. Will report to day shift nurse.
[2019-09-13 07:31] VITALS: BP 123/72; PULSE 109; TEMP 97.4
--- NOTE | 2019-09-13 10:30 | NUR ---
Patients blood glucose is starting to come down. She has been given IV and IM insulin this morning. She has been rating her pain high today. Discussed pain medications that she feels works best and the doctor is switching her to norco. Stopping dilauded. Patient is resting comfortably at this time. No other chagnes at this time.
[2019-09-13 11:28] VITALS: BP 101/56; PULSE 103; TEMP 97.9
--- NOTE | 2019-09-13 14:00 | NUR ---
CANDY attended clinical rounds. The hospitalist discussed switching the patient to oral meds and encouraged the patient to participate with therapy. CANDY then followed up with the patient to review discharge plan and to discuss her use of narcotics before hospitalization. The patient's sister had informed the clinical team that the patient had taken her pain medications before hospitalization. The patient reports that she only took a few and that she became sick afterwards. She states that she has no concerns with dependence. She states that when she is in pain that she just smokes marijuana. The patient was not interested in any treatment options for narcotics. CANDY then discussed hospitalist recommendation of primary care. The patient reports that she would prefer somewhere in [place], but requests that SW speak to her sister. CANDY then attempted to contact the patient's sister, Michelle. CANDY left her a voicemail. CANDY contacted [facility] in [place]. [facility] reports that the patient would need to contact the hospital and speak to their finance team (Ngozi Glass or Yanna Wang) about filing for the sliding scale fee and discounted rate at their clinic. The patient's sister, Michelle, then arrived at the hospital. CANDY followed up with Michelle and the patient. Michelle reports that they would be interested in getting the patient set up with primary care. Michelle and the patient were agreeable to initially get set up at the [facility] in [place] for primary care and then look at tranferring to [facility] after after they call and if they get approved. CANDY contacted [facility] in [place] and secured the patient and appointment for Monday, 10/08, at 1300. CANDY informed the patient's RN and the patient's PADari Cantu, of appointment. CANDY provided the patient's sister with [facility] registration packet and CANDY faxed the patient's records to [facility]. CANDY will need to fax the patient's discharge orders to [facility]. (fax#[phone]). PT is also recommending crutches for the patient. CANDY presented and explained the Patient Choice Form to the patient and her sister and discussed the options of where to get one with her being self pay. The patient and her sister chose [facility]. Patient Choice Form signed by the patient's sister and she was provided a copy. CANDY contacted and faxed the patient's crutches order with her Financial Assistance Application to Tana at [facility]. CANDY informed Tana of the patient tentatively being able to discharge this weekend for them to deliver the crutches. The patient's sister also expressed some concerns to CANDY. CANDY notified inspector floor. CANDY to continue to follow.
[2019-09-13 16:05] VITALS: BP 109/59; PULSE 98; TEMP 98.1
--- NOTE | 2019-09-13 16:29 | NUR ---
RA SP02 80% PLACED ON 2 LPM NC 94% ASLEEP
--- NOTE | 2019-09-13 17:20 | NUR ---
Tana, at [facility], reports that they are unable to deliver the crutches today. She states that if the patient is ready to discharge this weekend, for SW contact to [facility] and that they will deliver the crutches to her room this weekend. SW to continue to follow.
--- NOTE | 2019-09-13 18:00 | NUR ---
Patients pain has been better controlled with the norco. Denies nausea. She has been trying to eat better this shift. Her WBG is finally below 300. She has been up 4 times today, twice with PT and twice to the [facility]. Her sister came to visit. No other changes at this time. Call light within reach.
[2019-09-13 20:44] VITALS: BP 99/55; PULSE 93; TEMP 98
[2019-09-14 00:44] VITALS: BP 145/86; PULSE 99; TEMP 97.7
--- NOTE | 2019-09-14 03:36 | NUR ---
Patient slept well until about midnight when patient's sister arrived. Patient then called out, crying, that she needed something for pain. PRN Lena given. Patient up to the commode and continues to cry throughout the entire process. Utilizes crutches for transfer. Able to urinate about 200ml. Patient appears edematous to bilateral feet and hands and complains of her skin feeling "stretched". Education provided on edema and that it will take some time to get rid of the excess fluid. Patient stated her stomach wasn't feeling well and that she was hot. Vitals WNL. PRN pepto-bismal given. Awaiting for results. Will continue to monitor patient and provide supportive care.
[2019-09-14 03:40] VITALS: BP 156/95; PULSE 97; TEMP 97.6
[2019-09-14 07:52] VITALS: BP 160/93; PULSE 103; TEMP 97.8
[2019-09-14 09:11] LABS: BASO % 0.5 % (0.0-2.0); EOS # 0.3 (0.0-0.7); EOS % 4.3 % (0-4.0); GRAN # 4.7 (1.4-6.5); HEMATOCRIT 28.5 % (37.0-47.0); LYMPH # 1.8 (1.2-3.4); LYMPH % 23.5 % (20.0-51.0); MEAN CELL VOLUME 92 fl (80.0-100.0); MEAN CORPUSCULAR HEMOGLOBIN 29 pg (27.0-31.0); MEAN CORPUSCULAR HGB CONC 32 g/dl (33.0-37.0); MEAN PLATELET VOLUME 8.9 fl (7.4-10.4); MONO # 0.6 (0.1-0.6); MONO % 8.4 % (1.7-9.3); PLATELET COUNT 356 K/mm3 (130-400); REDCELL DISTRIBUTION WIDTH-CV 12.4 % (11.5-14.5)
[2019-09-14 09:21] LABS: CALCIUM 8.4 mg/dL (8.4-10.2); CREATININE, serum 1.45 (0.52-1.25)
[2019-09-14 12:13] VITALS: BP 133/87; PULSE 98; TEMP 98
--- NOTE | 2019-09-14 12:48 | NUR ---
Spoke with Patients nurse who raised concerns in regards to patients ability to maintain blood sugars. Nurse informed t his SW that patient was new to the area and that patient may need community resource information. This SW attempted to speak with patient was was a sleep. SW identified self and received permission to speak with patient. As SW asked questions, Pt asked SW if she was going to ask the same questions that patient had already been asked several times before. SW asked patient if she could leave some community resources. Patient declined receiving resource information stating that she has follow up appointments lined up already.
--- NOTE | 2019-09-14 13:12 | NUR ---
CANDY contacted [facility] and coordinated for Patient to receive her crutches for discharge later. CANDY contacted nurse and informed her that crutches would be dropped off in approximately 45 minutes.
[2019-09-14] MEDS ORDERED: METOZOLV ODT5 MG PO (14:07)
[2019-09-14] MEDS ORDERED: HUMULIN 70/3100 U/M1 SQ (14:07)
--- NOTE | 2019-09-14 16:02 | NUR ---
SW was contacted by Patients nurse for assistance in coordinating discharge. Patient indicated that her sister would not be off work until late at night and so she did not have transportation home at this time. CANDY coordinated with the household assistant, and SW soakers supervisor, Spoke with patients sister [phone] who indicated she was currently working a double shift, who agreed to come and pick the patient up after she got off of work at 1030 this evening. SW informed patients nurse and confirmed with patients doctor.
[2019-09-14 17:08] VITALS: BP 132/81; PULSE 95; TEMP 99.1
--- NOTE | 2019-09-14 19:12 | NUR ---
BEDSIDE SHIFT REPORT GIVEN TO ESTER STOVER.
[2019-09-14 19:41] VITALS: BP 125/78; PULSE 97; TEMP 98.4
--- NOTE | 2019-09-14 21:20 | NUR ---
PT GIVEN DISCHARGE INSTRUCTIONS. HARD COPIES TO PT. PT MEDICATED FOR PAIN BEFORE LEAVING FACILITY, YOLANDA ADMINISTERED. SCRIPT FOR PAIN MEDICATION ACQUIRED FOR PT FROM HOSPITALIST, COPY ON CHART. PT HAD NO I.V. PT'S SISTER ARRIVED TO DRIVE PT HOME. PT WEARING LEG BRACE. PT TOOK CRUTCHES HOME THAT WERE, ACCORDING TO HER, DELIVERED TO HER FOR USE AT HOME. PT ESCORTED TO SISTER'S VEHICLE VIA WHEELCHAIR.
--- NOTE | 2019-09-16 09:02 | NUR ---
CANDY faxed the patient's discharge orders to [facility] in [place].
== END 2019-09-14 21:20 | disposition home or self-care (01) | DRG 516 ==
LOC: SURG 10:51
PROVIDERS: Orthopaedic Surgery; Physician Assistant; ADMIT Hospitalist
PROC: 0QSF04Z Reposition Left Patella with Internal Fixation Device, Open Approach (ICD-10-PCS; principal; 2019-09-12 11:30)
DX: S82.042A Displaced comminuted fracture of left patella, initial encounter for closed fracture (principal); N17.9 Acute kidney failure, unspecified; K21.9 Gastro-esophageal reflux disease without esophagitis; K31.84 Gastroparesis; W01.0XXA Fall on same level from slipping, tripping and stumbling without subsequent striking against object, initial encounter; Y93.01 Activity, walking, marching and hiking; N18.9 Chronic kidney disease, unspecified; E10.43 Type 1 diabetes mellitus with diabetic autonomic (poly)neuropathy; E10.65 Type 1 diabetes mellitus with hyperglycemia; E10.649 Type 1 diabetes mellitus with hypoglycemia without coma; I12.9 Hypertensive chronic kidney disease with stage 1 through stage 4 chronic kidney disease, or unspecified chronic kidney disease; E10.22 Type 1 diabetes mellitus with diabetic chronic kidney disease; K52.9 Noninfective gastroenteritis and colitis, unspecified; E87.5 Hyperkalemia; Z79.4 Long term (current) use of insulin
CPT/HCPCS: OP; 99231-AI; 99232-AI; 99239; A9284; G0378; G0379; J0360; J0690; J1170; J1610; J1650; J1815; J2250; J2270; J2405; J2704; J3010; J7030; L1832